=== PATIENT | male | born 1990 | race Caucasian/White ===

== ENCOUNTER 2022-12-22 13:21 | Emergency (ER) | payer MEDICAID ==
[~2022-12-22] VITALS: Ht 185.4 cm; Wt 79.3 kg
[2022-12-22 16:42] VITALS: BP 127/83; PULSE 68; RESP 18; O2SAT 97
== END 2022-12-22 16:41 | disposition home or self-care (01) ==
LOC: ER 13:21
DX: M23.91 Unspecified internal derangement of right knee (principal)